=== PATIENT | male | born 1955 | race Caucasian/White ===

== ENCOUNTER 2017-09-04 12:23 | Emergency (ER) | payer MEDICAID ==
[2017-09-04 16:16] LABS: BILIRUBIN,URINE NEGATIVE (NEGATIVE); GLUCOSE, URINE (UA) NEGATIVE (NEGATIVE); KETONES,URINE (UA) NEGATIVE (NEGATIVE); LEUKOCYTE ESTERASE, URINE NEGATIVE (NEGATIVE); NITRITE,URINE NEGATIVE (NEGATIVE); OCCULT BLOOD,URINE NEGATIVE (NEGATIVE); PROTEIN,URINE NEGATIVE (NEGATIVE); UROBILINOGEN,URINE 0.2 (NORMAL) E.U./dL (NORMAL)
[2017-09-04 16:17] LABS: CLARITY,URINE CLEAR (CLEAR)
--- NOTE | 2017-09-04 16:34 | ED Physician Documentation ---
History of Present Illness - Stated complaint Stated Complaint: CATHETER ISSUE - Chief complaint Chief Complaint: General - Additonal information Additional information: hx from pt 560 male suffered a saddle injury derrick boat in [place] earlier this month went to ER in [place] - had xrays CT scans etc and needed a gonzalez placed he could not stay in [place] so he had follow up at [facility] - trial of removing gonzalez failed and had to be replaced next he has a fup appt with a specialist at [facility] his gonzalez fell out has cannot urinate no fever [place] etc Review of Systems Constitutional: denies: Fever GI: reports: Abdominal Pain (suprapubic) : reports: Unable to Void Musculoskeletal: denies: Back pain PD PAST MEDICAL HISTORY - Present Medications Home Medications: Ambulatory Orders Medication Instructions Recorded Confirmed Finasteride 09/04/17 09/04/17 Tamsulosin HCl [Flomax] 09/04/17 - Allergies Allergies/Adverse Reactions: Allergies Allergy/AdvReac Type Severity Reaction Status Date / Time No Known Drug Allergies Allergy Verified 09/04/17 12:32 PD ED PE NORMAL - Vitals Vital signs reviewed: Yes - Cardiac Cardiac: RRR - Respiratory Respiratory: No respiratory distress, Clear bilaterally - Abdomen Abdomen: Soft, Other (distended bladder) Results - Vitals Vitals: Vital Signs - 24 hr 09/04/17 12:29 Temperature 36.5 C Heart Rate 86 Respiratory 20 Rate Blood Pressure 129/93 H O2 Saturation 98 Oxygen O2 Source Room air - Labs Labs: Laboratory Tests 09/04/17 16:09 Urine Color YELLOW Urine Clarity CLEAR Urine pH 6.0 Ur Specific [place] >=1.030 H Urine Protein NEGATIVE Urine Glucose (UA) NEGATIVE Urine Ketones NEGATIVE Urine Occult Blood NEGATIVE Urine Nitrite NEGATIVE Urine Bilirubin NEGATIVE Urine Urobilinogen 0.2 (NORMAL) Ur Leukocyte Esterase NEGATIVE Ur Microscopic Review NOT INDICATED Urine Culture Comments NOT INDICATED PD MEDICAL DECISION MAKING - ED course ED course: gonzalez replaced - Sepsis Event Vital Signs: Vital Signs - 24 hr 09/04/17 12:29 Temperature 36.5 C Heart Rate 86 Respiratory 20 Rate Blood Pressure 129/93 H O2 Saturation 98 Oxygen O2 Source Room air Departure - Departure Disposition: 01 Home, Self Care Clinical Impression: Encounter for Gonzalez catheter replacement Condition: Good Instructions: ED Catheter Care Gonzalez Comments: Followup with your specialist at [facility] as planned
[2017-09-04 16:50] VITALS: BP 130/84
== END 2017-09-04 16:49 | disposition home or self-care (01) ==
LOC: ED 12:23
DX: Z46.6 Encounter for fitting and adjustment of urinary device (principal)
CPT/HCPCS: 51702; 81001; 81003; 87086; 99282; 99283